=== PATIENT | male | born 1965 | race Caucasian/White ===

== ENCOUNTER 2019-01-09 08:41 | Inpatient (IN) ==
[2019-01-09] MEDS ORDERED: Albuterol 2.5 MG/3 ML NEBULIZER IH ONE (08:56)
--- NOTE | 2019-01-09 08:56 | Emergency Department Note ---
Disposition Clinical Impression: Acute exacerbation of chronic obstructive airways disease Disposition: Admitted As Inpatient Condition: Fair Time of Disposition: 10:07 General Adult HPI - General Stated complaint: JENNIFER Time Seen by Provider: 01/09/19 08:45 Source: patient Limitations: no limitations Nursing Notes Reviewed: Yes Vital Signs Reviewed: Yes - History of Present Illness HPI Narrative: Patient is a 53-year-old male presented with difficulty breathing and chills. Patient with known history of COPD. Patient states that for the past 3 days he has been having increased shortness of breath with exertion, cough with producti ve sputum as well as subjective fevers and chills. He states that last year he had pneumonia with very similar symptoms and was concerned. He has not had any recent antibiotic or steroid use. He does use Symbicort as well as albuterol at home, did do a nebulized treatment prior to arrival without significant improvement. Patient otherwise denies chest pain. He denies lower leg swelling, history of DVT or PE. Pain Scale: 0 - Related Data Home Medications Medication Instructions Recorded Confirmed Lisinopril/Hydrochlorothiazide 1 tab PO DAILY 01/09/19 01/09/19 [Zestoretic 20-25 mg Tablet] Lovastatin [Mevacor] 20 mg PO HS 01/09/19 01/09/19 Metoprolol Tartrate [Lopressor] 50 mg PO BID 01/09/19 01/09/19 cloNIDine HCl [Clonidine HCl] 0.2 mg PO DAILY 01/09/19 01/09/19 Allergies Allergy/AdvReac Type Severity Reaction Status Date / Time No Known Allergies Allergy Verified 09/19/16 09:22 All systems ED: reviewed and negative except as stated. Review of Systems: As Per HPI Constitutional: Reports: fever, chills ENT ED: Reports: congestion Cardiovascular: Reports: dyspnea on exertion. Denies: chest pain, palpitations, syncope Respiratory: Reports: cough, dyspnea, wheezes, sputum production. Denies: hemoptysis Gastrointestinal: Denies: abdominal pain, nausea, vomiting Genitourinary: Denies: urgency, dysuria Musculoskeletal: Denies: back pain Integumentary: Denies: rash Neurological: Denies: headache, weakness, confusion Endocrine: Denies: fatigue Past Medical History - Past Medical History Medical history: Reports: COPD, hypertension Psychiatric history: Reports: no psych history - Social History Smoking Status: Current every day smoker Smokeless Tobacco Status: No Alcohol use: Reports: none Drug use: Reports: none Physical Exam - General Limitations: no limitations General appearance: alert - Head Head exam: atraumatic, normocephalic, normal inspection - Eye Eye exam: Present: normal appearance, PERRL, EOMI - ENT ENT exam: normal exam, normal oropharynx, mucous membranes moist - Neck Neck exam: Present: normal inspection, full ROM, trachea midline - Chest Chest inspection: Present: normal inspection, symmetric chest wall rise - Respiratory Respiratory exam: Present: prolonged expiratory phase (Prolonged expiratory phase with diffuse wheezing bilaterally, rhonchorous with few crackles at the bases. Patient currently on 2 L nasal cannula and conversationally dyspneic) - Cardiovascular Cardiovascular exam: Present: regular rate, normal rhythm, normal heart sounds - Abdominal Exam Abdominal exam: Present: soft, Non-Tender. Absent: tenderness, distention, guarding, rebound, rigidity - Extremities Exam Extremities exam: Present: normal inspection, full ROM. Absent: tenderness, pedal edema - Back Exam Back exam: Present: normal inspection, full ROM. Absent: tenderness - Neurological Exam Neurological exam: Present: alert, oriented X3 - Psychiatric Psychiatric exam: Present: normal affect, normal mood - Skin Skin exam: Present: warm, dry, intact, normal color Course Vital Signs Temperature 97.4 F L 01/09/19 08:44 Pulse Rate 91 01/09/19 08:44 Respiratory Rate 22 01/09/19 08:44 Blood Pressure 110/80 01/09/19 08:44 O2 Sat by Pulse Oximetry 89 01/09/19 08:44 Temperature 97.4 F L 01/09/19 08:44 Pulse Rate 92 01/09/19 11:33 Respiratory Rate 20 01/09/19 11:33 Blood Pressure 116/77 01/09/19 11:33 O2 Sat by Pulse Oximetry 91 01/09/19 11:33 Oxygen Delivery Oxygen Delivery Nasal Cannula Medical Decision Making - [facility] Narrative Medical decision making narrative: Patient is a 53-year-old male who is presenting with shortness of breath. On arrival, patient is afebrile, normotensive, conversationally dyspneic on 2-4 L of nasal cannula. Patient does not wear oxygen at home. Patient with known history of COPD, chronic smoker. Initial treatment of DuoNeb and Solu-Medrol, on repeat evaluation with patient continues to have wheezing although somewhat improved. We will give additional DuoNeb treatment and reevaluate. On further evaluation, patient continues have wheezing, patient oxygen requirement at this point in time is 2 L nasal cannula, when this is removed sitting at bedside, patient desats to 88%. Patient had bedside walk evaluation, immediately desat to 83% and symptomatic. Laboratory work shows a leukocytosis of 17, no recent steroid use. Troponin within normal limits, EKG shows no acute ischemic changes. Chest x-ray shows no sign of focal pneumonia. As patient does have leukocytosis with increased purulent sputum with subjective chills and fever at home, we will treat the patient for pneumonia as well with Rocephin and azithromycin. At this point in time, patient will be admitted for COPD exacerbation, pneumonia as well as increased oxygen requirement. Patient agrees with disposition of admission. Stable at time of disposition. - Medical Records Medical records reviewed: Yes I reviewed the patient's medical records. - Lab Data Lab results reviewed: Yes I reviewed the patient's lab results. Result diagrams: 01/09/19 08:49 01/09/19 08:49 Lab Results 01/09/19 01/09/19 01/09/19 Range/Units 08:49 08:49 08:49 WBC 16.6 H (4.3-11.1) K/mcL RBC 5.63 H (4.19-5.50) M/mcL Hgb 17.0 H (12.9-16.9) g/dL Hct 51.3 H (37.5-50.1) % MCV 91.1 (83.0-100.0) fL MCH 30.2 (28.0-33.3) pg MCHC 33.1 (31.6-35.5) g/dL RDW 13.4 (11.5-14.5) % Plt Count 237 (140-400) K/mcL MPV 10.4 (9.4-12.4) fL Immature Gran % 0.5 (0-4) % Seg Neutrophils % 79.7 % Lymphocytes % 11.9 % Monocytes % 6.2 % Eosinophils % 1.0 % Basophils % 0.7 % Neutrophils # 13.2 H (1.6-8.9) K/mcL Lymphocytes # 2.0 (0.6-4.6) K/mcL Monocytes # 1.0 (0.0-1.3) K/mcL Eosinophils # 0.2 (0.0-0.6) K/mcL Basophils # 0.1 (0.0-0.2) K/mcL Sodium 136 (136-145) mEq/L Potassium 4.0 (3.5-5.1) mEq/L Chloride 95 L (98-107) mEq/L Carbon Dioxide 32 H (23-29) mEq/L BUN 14 (6-20) mg/dL Creatinine 1.08 (0.70-1.30) mg/dL Est GFR ( Amer) > 60 (> 60) Est GFR (Non-Af Amer) > 60 (> 60) BUN/Creatinine Ratio 13 (6-26) Glucose 140 H (70-105) mg/dL Calculated Osmolality 285 (280-300) Lactic Acid (0.5-2.2) mmol/L Calcium 9.6 (8.6-10.3) mg/dL Troponin I < 0.03 (< 0.04) ng/mL Procalcitonin 0.09 (0.00-0.15) ng/mL 01/09/19 Range/Units 08:49 WBC (4.3-11.1) K/mcL RBC (4.19-5.50) M/mcL Hgb (12.9-16.9) g/dL Hct (37.5-50.1) % MCV (83.0-100.0) fL MCH (28.0-33.3) pg MCHC (31.6-35.5) g/dL RDW (11.5-14.5) % Plt Count (140-400) K/mcL MPV (9.4-12.4) fL Immature Gran % (0-4) % Seg Neutrophils % % Lymphocytes % % Monocytes % % Eosinophils % % Basophils % % Neutrophils # (1.6-8.9) K/mcL Lymphocytes # (0.6-4.6) K/mcL Monocytes # (0.0-1.3) K/mcL Eosinophils # (0.0-0.6) K/mcL Basophils # (0.0-0.2) K/mcL Sodium (136-145) mEq/L Potassium (3.5-5.1) mEq/L Chloride (98-107) mEq/L Carbon Dioxide (23-29) mEq/L BUN (6-20) mg/dL Creatinine (0.70-1.30) mg/dL Est GFR ( Amer) (> 60) Est GFR (Non-Af Amer) (> 60) BUN/Creatinine Ratio (6-26) Glucose (70-105) mg/dL Calculated Osmolality (280-300) Lactic Acid 1.4 (0.5-2.2) mmol/L Calcium (8.6-10.3) mg/dL Troponin I (< 0.04) ng/mL Procalcitonin (0.00-0.15) ng/mL - Radiology Data Radiology results reviewed: Yes I reviewed the patient's radiology results. Chest X-Ray 01/09/19 08:55 IMPRESSION: No acute cardiopulmonary process. D/ / Guy Ceballos MD / Guy Ceballos MD Interpreting Provider: Guy Ceballos MD - EKG Data EKG #1 EKG attestation: Yes I reviewed and interpreted this EKG. EKG results narrative: EKG data 0847 ventricular rate of 83, regular rhythm, normal axis, no ST segment elevation, depression no T-wave changes. There does appear to be left atrial enlargement. Attestation Statement - Attestation Attestation: I, Norm Nielsen, examined this patient and my medical decision-making was reviewed with the MACHINE TRY OUT SETTER/PA/Advanced Practice Nurse/Resident Physician. I agree with the documented findings, disposition and treatment plan as described except to the extent set forth below. 53-year-old male presents emergency Department with concerns of difficulty in breathing. Patient reports difficulty breathing forth obligate exertion. He has a history of COPD. He also has a history of multiple pneumonia in the past. Patient reports that this feels similar to his previous pneumonia. Patient reports cough productive of yellow-green sputum. He is afebrile emergency department. He was given breathing treatments emergency Department with improvement of his wheezing which was present in bilateral posterior lung lopez however he was hypoxic with ambulation. Patient will be admitted to hospitalist for further care and evaluation. He was started on antibiotics emergency department. He was given steroids emergency department. Patient comfortable with the plan of action.
[2019-01-09] MEDS ORDERED: methylPREDNISolone 125 MG/2 ML VIAL IVP ONE (09:00)
[2019-01-09 09:28] LABS: Basophils # 0.1 K/mcL (0.0-0.2); Basophils % 0.7 %; Eosinophils # 0.2 K/mcL (0.0-0.6); Hematocrit 51.3 % (37.5-50.1); Immature Granulocytes % 0.5 % (0-4); Lymphocytes % 11.9 %; Mean Corpuscular HGB Conc 33.1 g/dL (31.6-35.5); Mean Corpuscular Hemoglobin 30.2 pg (28.0-33.3); Mean Corpuscular Volume 91.1 fL (83.0-100.0); Mean Platelet Volume 10.4 fL (9.4-12.4); Monocytes % 6.2 %; Neutrophils # 13.2 K/mcL (1.6-8.9); Platelet Count 237 K/mcL (140-400); Red Blood Count 5.63 M/mcL (4.19-5.50); Red Cell Distribution Width 13.4 % (11.5-14.5); Segmented Neutrophils % 79.7 %; White Blood Count 16.6 K/mcL (4.3-11.1)
[2019-01-09 09:46] LABS: BUN/Creatinine Ratio 13 (6-26); Blood Urea Nitrogen 14 mg/dL (6-20); Calcium 9.6 mg/dL (8.6-10.3); Carbon Dioxide 32 mEq/L (23-29); Chloride 95 mEq/L (98-107); Glucose 140 mg/dL (70-105); Osmolality,Calculated 285 (280-300); Sodium 136 mEq/L (136-145); Troponin I < 0.03 ng/mL (< 0.04); eGFR For African Americans > 60 (> 60); eGFR For Non-African Americans > 60 (> 60)
[2019-01-09] MEDS ORDERED: Ipratropium/Albuterol Neb 3 ML IH ONE (09:57)
[2019-01-09] MEDS ORDERED: cefTRIAXone 1,000 MG in Water for inj. (sterile) 10 ML IVP ONE (11:03)
[2019-01-09] MEDS ORDERED: Azithromycin 500 MG in 0.9 % Sodium Chloride 250 ML IVPB ONE (11:04)
--- NOTE | 2019-01-09 13:15 | Internal Med History&Physical ---
Date of Encounter: 01/09/19 Time of Encounter: 13:15 Internal Medicine - H&P: HPI Chief complaint: SOB, sputum production Admitted From: Emergency Dept History of present illness: Sridhar Murphy is a 53 M w hx COPD, smoker, HTN, obesity, who p/w SOB. Patient notes that for last week, he's had increasing exertional dyspnea with any activities, including most recently with even walking to kitchen or bathroom, and starting to feel some SOB at rest. Noting significant increase in sputum production, with color change from clear to green. Does say he's had pneumonia before and this feels like his previous episodes. Denies fevers, chills, aches, or lymphadenopathy. No chest pain or edema. Pt tried cough syrup without relief, and continued to feel worse. Is still smoking 0.5 ppd. In the ED, pt afebrile but HR 90s and RR 22, O2 sats 88% on RA and 83% with standing; recovered well w supplemental O2. CXR unremarkable including no consolidations/infiltrates. ECG unremarkable. Labs notable for WBC 17, Hb 17, CO2 32, glucose 140, lactate 1, trop <0.03, procalcitonin 0.1. Patient was given rocephin/azithro, solumedrol 125, multiple nebs, and admitted for persistent hypoxia. PMH: as noted above PSH: R knee replacement SH: 0.5 ppd smoker, no EtOH FH: no FHx of COPD or lung cancer, mother had DM2 Allergies: none Past Med Surg Social Fam HX - Past Medical History Medical history: COPD, hypertension Psychiatric history: no psych history - Social History Smoking Status: Current every day smoker Smokeless Tobacco Status: No Alcohol use: none Drug use: none Internal Medicine - H&P: Meds Unable To Obtain [Unable to Obtain] 01/09/19 [History] Allergy/AdvReac Type Severity Reaction Status Date / Time No Known Allergies Allergy Verified 09/19/16 09:22 All Systems PM: A 10-system review of systems was performed and is negative for pertinent findings except as documented above in the HPI. - Constitutional Vitals: Temp Pulse Resp BP Pulse Ox 97.4 F L 88 20 126/83 93 01/09/19 08:44 01/09/19 12:30 01/09/19 12:30 01/09/19 12:30 01/09/19 12:30 Exam: General: NAD, good eye contact, well appearing, obese Head: Atraumatic, normocephalic. Face symmetric Eyes: EOMI, sclerae anicteric ENT: Mucous membranes moist. Normal oral mucosa and dentition. Trachea midline. No cervical lymphadenopathy Thoracic: No visible chest wall deformities. Does have mild coarse expiratory breath sounds, with significant wheezing on forced exhalation Cardio: Normal S1 and S2, regular rate and rhythm, no murmurs Abdomen: Soft, nontender, nondistended. Bowel sounds present. No rebound Extremities: Warm, well perfused. DP pulses 2+ b/l. No clubbing, cyanosis. No edema Skin: Intact. No rashes, bruises, or ulcers Neuro: Awake, fully oriented. Good memory, concentration, attention. Speech fluent. CN II-XII grossly intact. Strength 5/5 in b/l UE and LE Internal Med - H&P Results - Labs CBC & Chem 7: 01/09/19 08:49 01/09/19 08:49 Labs: Short CBC 01/09/19 Range/Units 08:49 WBC 16.6 H (4.3-11.1) K/mcL Hgb 17.0 H (12.9-16.9) g/dL Hct 51.3 H (37.5-50.1) % Plt Count 237 (140-400) K/mcL Neutrophils # 13.2 H (1.6-8.9) K/mcL BMP 01/09/19 08:49 Sodium 136 Potassium 4.0 Chloride 95 L Carbon Dioxide 32 H BUN 14 Creatinine 1.08 Glucose 140 H Calcium 9.6 Cardiac Enzymes 01/09/19 Range/Units 08:49 Troponin I < 0.03 (< 0.04) ng/mL - Impressions ITS Impressions Chest X-Ray 01/09/19 08:55 IMPRESSION: No acute cardiopulmonary process. D/ / Guy Ceballos MD / Guy Ceballos MD Interpreting Provider: Guy Ceballos MD - Summary of Assessment and Plan Summary of Assessment and Plan: Sridhar Murphy is a 53 M w hx COPD, smoker, HTN, obesity, who p/w SOB, cough, increased sputum, sputum color change, tachypnea, and hypoxia, with normal procalcitonin, concerning for COPD exacerbation causing acute hypoxic respirato ry failure. COPD in acute exacerbation: unclear cause, is still smoking, hx pna but CXR and procal both unremarkable - nebs q4h&prn - prednisone 40 daily x5d, s/p solumedrol 125 in ED - azithromycin 500 po daily x5d - home inhalers Acute hypoxic respiratory failure: requiring 2L O2 to maintain sats >88% - supplemental O2, wean as able - IS, mucinex - treat cause as above - walk test prior to discharge HTN: awaiting home med rec, controlled currently Smoker: advised cessation, nicotine offered Obesity: BMI 35 PPx: lovenox Activity: ambulate FEN: cardiac, no MIVF Lines: PIV Consults: Code: Full Dispo: patient requires inpatient eval and management at this time. Anticipate 2-3 days. Will be homegoing. Might need new home O2.
[2019-01-09] MEDS ORDERED: Ondansetron 4 MG/2 ML VIAL IVP PRN (13:28)
[2019-01-09] MEDS ORDERED: Nicotine 2 MG GUM BC PRN (13:30)
[2019-01-09 13:47] LABS: Magnesium 2.1 mg/dL (1.6-2.6)
[2019-01-09] MEDS: Nicotine 21 MG PATCH.TD24 TD SCH (14:12)
[2019-01-09] MEDS: Ipratropium/Albuterol Neb 3 ML IH SCH ×3 (15:30→23:59)
[2019-01-10] MEDS: Ipratropium/Albuterol Neb 3 ML IH SCH ×5 (03:55→20:01)
[2019-01-10] MEDS: *HR* Enoxaparin 40 MG/0.4 ML SYRINGE SQ SCH (04:09)
[2019-01-10] MEDS: Acetaminophen 325 MG TABLET PO PRN ×2 (04:09→22:15)
[2019-01-10 04:54] LABS: Hematocrit 51.2 % (37.5-50.1); Hemoglobin 16.5 g/dL (12.9-16.9); Mean Corpuscular HGB Conc 32.2 g/dL (31.6-35.5); Mean Corpuscular Hemoglobin 29.8 pg (28.0-33.3); Mean Corpuscular Volume 92.4 fL (83.0-100.0); Mean Platelet Volume 10.4 fL (9.4-12.4); Platelet Count 228 K/mcL (140-400); Red Blood Count 5.54 M/mcL (4.19-5.50); Red Cell Distribution Width 13.2 % (11.5-14.5); White Blood Count 16.4 K/mcL (4.3-11.1)
[2019-01-10 05:11] LABS: BUN/Creatinine Ratio 23 (6-26); Blood Urea Nitrogen 21 mg/dL (6-20); Calcium 9.4 mg/dL (8.6-10.3); Carbon Dioxide 31 mEq/L (23-29); Chloride 96 mEq/L (98-107); Glucose 156 mg/dL (70-105); Magnesium 2.3 mg/dL (1.6-2.6); Osmolality,Calculated 284 (280-300); Potassium 4.4 mEq/L (3.5-5.1); Sodium 134 mEq/L (136-145); eGFR For African Americans > 60 (> 60); eGFR For Non-African Americans > 60 (> 60)
[2019-01-10] MEDS: Nicotine 21 MG PATCH.TD24 TD SCH (09:38)
[2019-01-10] MEDS: predniSONE 20 MG TABLET PO SCH (09:38)
[2019-01-10] MEDS: Azithromycin 250 MG TABLET PO SCH (09:38)
--- NOTE | 2019-01-10 12:31 | Internal Med Progress Note ---
Hospitalist Progress Note - Encounter Date of Encounter: 01/10/19 Time of Encounter: 12:29 - Subjective Interval History: Patient was seen and examined at the bedside today. Patient reports has difficulty breathing has proved since yesterday. Patient continues to have difficulty in breathing on exertion. Denies any chest pain, palpitation, tingling, numbness, and weakness. - Exam Vitals: Temp Pulse Resp BP Pulse Ox 97.8 F 101 14 123/84 93 01/10/19 07:53 01/10/19 07:53 01/10/19 11:16 01/10/19 07:53 01/10/19 11:16 Exam: General: NAD, good eye contact, well appearing, obese Head: Atraumatic, normocephalic. Face symmetric Eyes: EOMI, sclerae anicteric RS: Bilateral wheezing Cardio: Normal S1 and S2, regular rate and rhythm, no murmurs Abdomen: Soft, nontender, nondistended. Bowel sounds present. No rebound Extremities: Warm, well perfused. DP pulses 2+ b/l. No clubbing, cyanosis. No edema Skin: Intact. No rashes, bruises, or ulcers - Assessment and Plan (1) Acute exacerbation of chronic obstructive airways disease Current Visit: Yes Status: Acute Assessment and Plan: She was hospitalized due to difficulty in breathing which was secondary to acute exacerbation of COPD. Patient continues to smoke. Patient was advised on quitting smoking. - Continue DuoNeb breathing therapy - Continue azithromycin - Continue steroid -Continue O2 support (2) Essential (primary) hypertension Current Visit: Yes Status: Acute Assessment and Plan: We will resume home medication as blood pressure permits. Lisinopril and hydrochlorothiazide resume today. (3) GIULIANA (obstructive sleep apnea) Current Visit: Yes Status: Chronic Assessment and Plan: Patient has history of GIULIANA. We will continue CPAP at nighttime. DVT Prophylaxis: Continue Lovenox. - Time Spent with Patient Total time spent is greater than 50% in coordination of care (as documented) at patient's floor/unit and/or counseling patient: 25 - 35 minutes Plan of Care Discussed with: patient Internal Medicine: Result - Labs CBC & Chem 7: 01/10/19 04:05 01/10/19 04:05 Labs: Short CBC 01/10/19 Range/Units 04:05 WBC 16.4 H (4.3-11.1) K/mcL Hgb 16.5 (12.9-16.9) g/dL Hct 51.2 H (37.5-50.1) % Plt Count 228 (140-400) K/mcL BMP 01/09/19 01/10/19 08:49 04:05 Sodium 136 134 L Potassium 4.0 4.4 Chloride 95 L 96 L Carbon Dioxide 32 H 31 H BUN 14 21 H Creatinine 1.08 0.92 Glucose 140 H 156 H Calcium 9.6 9.4 Cardiac Enzymes 01/09/19 Range/Units 08:49 Troponin I < 0.03 (< 0.04) ng/mL Consult Discharge Plan - Plan
[2019-01-11] MEDS: Ipratropium/Albuterol Neb 3 ML IH SCH ×7 (00:18→23:25)
[2019-01-11] MEDS: *HR* Enoxaparin 40 MG/0.4 ML SYRINGE SQ SCH (05:09)
[2019-01-11 07:10] LABS: Basophils # 0.1 K/mcL (0.0-0.2); Basophils % 0.6 %; Eosinophils # 0.1 K/mcL (0.0-0.6); Eosinophils % 0.7 %; Hematocrit 49.5 % (37.5-50.1); Hemoglobin 15.6 g/dL (12.9-16.9); Immature Granulocytes % 0.6 % (0-4); Lymphocytes # 2.7 K/mcL (0.6-4.6); Lymphocytes % 22.4 %; Mean Corpuscular HGB Conc 31.5 g/dL (31.6-35.5); Mean Corpuscular Hemoglobin 30.2 pg (28.0-33.3); Mean Corpuscular Volume 95.7 fL (83.0-100.0); Mean Platelet Volume 10.5 fL (9.4-12.4); Monocytes # 0.8 K/mcL (0.0-1.3); Monocytes % 6.3 %; Neutrophils # 8.5 K/mcL (1.6-8.9); Platelet Count 225 K/mcL (140-400); Red Blood Count 5.17 M/mcL (4.19-5.50); Red Cell Distribution Width 13.3 % (11.5-14.5); Segmented Neutrophils % 69.4 %; White Blood Count 12.2 K/mcL (4.3-11.1)
[2019-01-11] MEDS: Budesonide/Formoterol 160/4.5 1 PUFF INH IH SCH ×2 (07:24→19:53)
[2019-01-11 07:30] LABS: BUN/Creatinine Ratio 25 (6-26); Blood Urea Nitrogen 20 mg/dL (6-20); Carbon Dioxide 33 mEq/L (23-29); Chloride 97 mEq/L (98-107); Glucose 120 mg/dL (70-105); Osmolality,Calculated 290 (280-300); Potassium 4.1 mEq/L (3.5-5.1); Sodium 138 mEq/L (136-145); eGFR For African Americans > 60 (> 60); eGFR For Non-African Americans > 60 (> 60)
[2019-01-11 07:58] LABS: Estimated Average Glucose 146 mg/dl
[2019-01-11] MEDS: Nicotine 21 MG PATCH.TD24 TD SCH (09:30)
[2019-01-11] MEDS: predniSONE 20 MG TABLET PO SCH (09:30)
[2019-01-11] MEDS: Azithromycin 250 MG TABLET PO SCH (09:30)
--- NOTE | 2019-01-11 13:04 | Internal Med Progress Note ---
Hospitalist Progress Note - Encounter Date of Encounter: 01/11/19 Time of Encounter: 13:01 - Subjective Interval History: Patient was seen and examined at bedside today. Patient reports that his blood including his improvement. However, patient still complaining of difficulty in breathing on exertion. Pt denied any chest pain and palpitation. - Exam Vitals: Temp Pulse Resp BP Pulse Ox 98.7 F 102 16 118/80 95 01/11/19 10:56 01/11/19 10:56 01/11/19 11:15 01/11/19 10:56 01/11/19 12:01 Exam: General: NAD, good eye contact, well appearing, obese Head: Atraumatic, normocephalic. Face symmetric Eyes: EOMI, sclerae anicteric RS: Mild to Moderate bilateral wheezing Cardio: Normal S1 and S2, regular rate and rhythm, no murmurs Abdomen: Soft, nontender, nondistended. Bowel sounds present. No rebound Extremities: Warm, well perfused. DP pulses 2+ b/l. No clubbing, cyanosis. No edema Skin: Intact. No rashes, bruises, or ulcers - Assessment and Plan (1) Acute exacerbation of chronic obstructive airways disease Current Visit: Yes Status: Acute Assessment and Plan: Pt was hospitalized due to difficulty in breathing which was secondary to acute exacerbation of COPD. Patient continues to smoke. Patient was advised on quitting smoking. - Continue DuoNeb breathing therapy - Continue azithromycin - Continue steroid - Continue O2 support - Patient is ambulatory pulse ox in today. Patient jacqui qualify for home O2 with 2L at rest and 4L on exertion. (2) Essential (primary) hypertension Current Visit: Yes Status: Acute Assessment and Plan: Lisinopril and hydrochlorothiazide resume today. (3) GIULIANA (obstructive sleep apnea) Current Visit: Yes Status: Chronic Assessment and Plan: Patient has history of GIULIANA. We will continue CPAP at nighttime. DVT Prophylaxis: Continue Lovenox. - Time Spent with Patient Total time spent is greater than 50% in coordination of care (as documented) at patient's floor/unit and/or counseling patient: 25 - 35 minutes Plan of Care Discussed with: patient Internal Medicine: Result - Labs CBC & Chem 7: 01/11/19 05:38 01/11/19 05:38 Labs: Short CBC 01/11/19 Range/Units 05:38 WBC 12.2 H (4.3-11.1) K/mcL Hgb 15.6 (12.9-16.9) g/dL Hct 49.5 (37.5-50.1) % Plt Count 225 (140-400) K/mcL Neutrophils # 8.5 (1.6-8.9) K/mcL [facility] 01/11/19 05:38 Sodium 138 Potassium 4.1 Chloride 97 L Carbon Dioxide 33 H BUN 20 Creatinine 0.80 Glucose 120 H Calcium 9.0 Consult Discharge Plan - Plan Referrals: Stacy Vaughn, OUT OF TOWN COLLECTION CLERK [Primary Care Provider] -
[2019-01-12] MEDS: Ipratropium/Albuterol Neb 3 ML IH SCH ×2 (03:37→07:25)
[2019-01-12] MEDS: *HR* Enoxaparin 40 MG/0.4 ML SYRINGE SQ SCH (05:00)
[2019-01-12 06:28] LABS: Basophils # 0.1 K/mcL (0.0-0.2); Basophils % 0.6 %; Eosinophils # 0.1 K/mcL (0.0-0.6); Eosinophils % 1.1 %; Hematocrit 50.3 % (37.5-50.1); Immature Granulocytes % 0.8 % (0-4); Lymphocytes # 2.5 K/mcL (0.6-4.6); Lymphocytes % 20.8 %; Mean Corpuscular HGB Conc 31.8 g/dL (31.6-35.5); Mean Corpuscular Hemoglobin 29.9 pg (28.0-33.3); Mean Platelet Volume 9.9 fL (9.4-12.4); Monocytes % 7.8 %; Neutrophils # 8.4 K/mcL (1.6-8.9); Platelet Count 250 K/mcL (140-400); Red Blood Count 5.35 M/mcL (4.19-5.50); Red Cell Distribution Width 13.3 % (11.5-14.5); Segmented Neutrophils % 68.9 %; White Blood Count 12.2 K/mcL (4.3-11.1)
[2019-01-12 06:47] LABS: BUN/Creatinine Ratio 20 (6-26); Blood Urea Nitrogen 16 mg/dL (6-20); Calcium 9.4 mg/dL (8.6-10.3); Carbon Dioxide 32 mEq/L (23-29); Chloride 96 mEq/L (98-107); Glucose 132 mg/dL (70-105); Osmolality,Calculated 285 (280-300); Sodium 136 mEq/L (136-145); eGFR For African Americans > 60 (> 60); eGFR For Non-African Americans > 60 (> 60)
[2019-01-12] MEDS: Budesonide/Formoterol 160/4.5 1 PUFF INH IH SCH (07:25)
[2019-01-12 07:59] VITALS: BP 130/86
[2019-01-12] MEDS: predniSONE 20 MG TABLET PO SCH (08:11)
[2019-01-12] MEDS: Nicotine 21 MG PATCH.TD24 TD SCH (08:11)
[2019-01-12] MEDS: Azithromycin 250 MG TABLET PO SCH (08:12)
--- NOTE | 2019-01-12 09:06 | Discharge Summary ---
- NOTES TO OUTPATIENT PROVIDER Notes to Outpatient Provider: Patient was admitted to the hospital for difficulty in breathing. Patient was placed on antibiotic and steroid. Patient improved. Patient discharged home on antibiotic and steroid taper. Patient had ambulatory pulse ox done while hospitalization. Patient qualified for oxygen at home. Patient advised to use oxygen 2 L at rest and 4 L on exertion. Advised to use oxygen at least 14-16 hours in a day. She also had HbA1c done which showed labile of 6.7. Patient was discharged on metformin for 2 weeks. Follow- up with primary care provider. Estimated PT Needs at Discharge: None Date of Encounter: 01/12/19 Time of Encounter: 09:01 - Discharge Diagnosis (1) Acute exacerbation of chronic obstructive airways disease Priority: Primary Status: Acute (2) Essential (primary) hypertension Priority: Secondary Status: Acute (3) Diabetes mellitus type 2 in obese Priority: Secondary Status: Acute (4) GIULIANA (obstructive sleep apnea) Priority: Secondary Status: Chronic Hospital course: Mr. Murphy is a 53 year old male was admitted to the hospital for difficulty in breathing. Patient was placed on antibiotic and steroid. Patient improved. Patient discharged home on antibiotic and steroid taper. Patient had ambulatory pulse ox done while hospitalization. Patient qualified for oxygen at home. Patient advised to use oxygen 2 L at rest and 4 L on exertion. Advised to use oxygen at least 14-16 hours in a day. She also had HbA1c done which showed labile of 6.7. Patient was discharged on metformin for 2 weeks. Follow-up with primary care provider. Discharge discussed with: patient, family, nurse, social work, case management - Time Spent with Patient Total time spent providing and/or coordinating discharge services: 35 Time spent: Greater than 30 minutes - Discharge Medications Prescriptions: New metFORMIN [Glucophage] 500 mg PO BIDWM 15 Days #30 tablet predniSONE [PredniSONE] 10 mg PO DAILY 14 Days #32 tablet Azithromycin [Zithromax] 500 mg PO DAILY 3 Days #3 tablet Continued Lovastatin [Mevacor] 20 mg PO HS Lisinopril/Hydrochlorothiazide [Zestoretic 20-25 mg Tablet] 1 tab PO DAILY Metoprolol Tartrate [Lopressor] 50 mg PO BID cloNIDine HCl [Clonidine HCl] 0.2 mg PO DAILY Home Medications: Lisinopril/Hydrochlorothiazide [Zestoretic 20-25 mg Tablet] 1 tab PO DAILY 01/09/19 [History] Lovastatin [Mevacor] 20 mg PO HS 01/09/19 [History] Metoprolol Tartrate [Lopressor] 50 mg PO BID 01/09/19 [History] cloNIDine HCl [Clonidine HCl] 0.2 mg PO DAILY 01/09/19 [History] Azithromycin [Zithromax] 500 mg PO DAILY 3 Days #3 tablet 01/12/19 [Rx] metFORMIN [Glucophage] 500 mg PO BIDWM 15 Days #30 tablet 01/12/19 [Rx] predniSONE [PredniSONE] 10 mg PO DAILY 14 Days #32 tablet 01/12/19 [Rx] Allergies/Adverse Reactions: Allergy/AdvReac Type Severity Reaction Status Date / Time No Known Allergies Allergy Verified 09/19/16 09:22 Date of admission: 01/09/19 13:28 Primary care physician: Stacy Vaughn Consults: 01/10/19 16:08 Consult to Nurse Navigator [CONS] Routine Comment: COPD Discharging clinician: Amor Lynch - Constitutional Vitals: Temp Pulse Resp BP Pulse Ox 98.3 F 102 18 130/86 90 01/12/19 07:58 01/12/19 07:58 01/12/19 07:58 01/12/19 07:58 01/12/19 07:58 General appearance: Present: cooperative, A&O X 3 Exam: General: A & O 3, In no acute distress HENNT: PERRLA. Head atraumatic and makes supple CVS S1 and S2 regular, no murmur RS: Clear to air entry bilaterally, no wheeze, no crackles Abdomen: Soft and nontender. Bowel sounds normal 4 Extremities: No cyanosis, clubbing, and edema Neurology: Cranial II-XII normal. Motor strength 5/5 bilaterally. Sensation intact - Patient Status Disposition: Home, Self-Care Condition: Good Overall status at discharge: patient is progressing back to baseline - Discharge Instructions Follow Up With: Stacy Vaughn, MONICA [Primary Care Provider] - (Please Call and set up follow up appointment within 7-10 days. ) Forms: ED Satisfaction Letter Additional Instructions: She was discharged on home oxygen. Patient was advised to use 2 L at rest and 4 L on exertion. - Diet and Activity Activity: increase activity as tolerated Diet: diabetic diet, low salt diet
--- NOTE | 2019-01-12 23:57 | Electrocardiograph Report ---
[facility] Test Date: 2019-01-09 Pat Name: Sridhar Murphy Department: EXAM3 Room: 2A38 Gender: M Stone Operator: : 1965 Requested By: Norm Nielsen Order Number: [id number] Reading MD: Sunday Adame Measurements Intervals [place] Rate: 83 P: 63 [place]: 173 QRS: 103 QRSD: 133 T: 77 QT: 412 QTc: 485 Interpretive Statements Sinus rhythm Probable left atrial enlargement Nonspecific intraventricular conduction delay Baseline wander in lead(s) V1 Electronically Signed On 01-12-2019 23:55:50 EDT by Sunday Adame
== END 2019-01-12 10:01 | disposition home or self-care (01) | DRG 190 ==
LOC: EMEROOARM 08:41 → 2ANU 08:41 → SUATTDRO 13:28 → 2ANU 13:49
PROVIDERS: ADMIT Internal Medicine; ATTEND Family Medicine

== ENCOUNTER 2021-02-13 18:31 | Inpatient (IN) ==
[2021-02-13] MEDS ORDERED: Ondansetron 4 MG/2 ML VIAL IVP PRN (21:10)
[2021-02-13] MEDS ORDERED: Acetaminophen 325 MG TABLET PO PRN (21:10)
[2021-02-13] MEDS ORDERED: Naloxone 0.4 MG/ML INJ IVP PRN (21:10)
[2021-02-13] MEDS ORDERED: D5% in Water 1,000 ML IVC PRN (21:12)
[2021-02-13] MEDS ORDERED: Dextrose Gel 15 GM/37.5 ML TUBE PO PRN ×2 (21:12)
[2021-02-13] MEDS ORDERED: *HR* Dextrose 50 % in Water (Syg) 50 ML SYRINGE IVP PRN (21:12)
[2021-02-13] MEDS: Insulin LISPRO 300 UNITS/3 ML VIAL SUBQ SCH (21:27)
[2021-02-13 21:32] LABS: Estimated Average Glucose 163 mg/dl; Hemoglobin A1C 7.3 %
[2021-02-13] MEDS: Tiotropium 10 INH DOSE IH SCH (23:02)
[2021-02-13] MEDS ORDERED: Ringers Solution, Lactated 500 ML IVC ONE (23:15)
[2021-02-14 05:39] LABS: Basophils % 0.3 %; Hematocrit 40.7 % (37.5-50.1); Hemoglobin 13.7 g/dL (12.9-16.9); Immature Granulocytes % 0.8 % (0-4); Lymphocytes # 0.6 K/mcL (0.6-4.6); Lymphocytes % 6.6 %; Mean Corpuscular HGB Conc 33.7 g/dL (31.6-35.5); Mean Corpuscular Hemoglobin 31.4 pg (28.0-33.3); Mean Corpuscular Volume 93.1 fL (83.0-100.0); Mean Platelet Volume 10.5 fL (9.4-12.4); Monocytes # 0.1 K/mcL (0.0-1.3); Monocytes % 1.3 %; Neutrophils # 8.8 K/mcL (1.6-8.9); Platelet Count 268 K/mcL (140-400); Red Blood Count 4.37 M/mcL (4.19-5.50); Red Cell Distribution Width 15.1 % (11.5-14.5); White Blood Count 9.7 K/mcL (4.3-11.1)
[2021-02-14] MEDS ORDERED: *HR* Enoxaparin 30 MG/0.3 ML SYRINGE SQ SCH (06:00)
[2021-02-14 06:03] LABS: Albumin/Globulin Ratio 0.9 (1.1-2.2); Bilirubin,Total 0.6 mg/dL (0.3-1.0); Calcium 8.6 mg/dL (8.6-10.3); Globulin 3.4 g/dL (2.4-3.5); Potassium 4.5 mEq/L (3.5-5.1); Total Protein 6.4 g/dL (6.4-8.9)
[2021-02-14] MEDS ORDERED: 0.9 % Sodium Chloride 1,000 ML IVC SCH (07:15)
[2021-02-14] MEDS: Insulin LISPRO 300 UNITS/3 ML VIAL SUBQ SCH ×3 (09:49→17:07)
[2021-02-14] MEDS: Tiotropium 10 INH DOSE IH SCH (11:12)
[2021-02-14] MEDS: cefTRIAXone 1,000 MG in Water for inj. (sterile) 10 ML IVP SCH (17:06)
[2021-02-14] MEDS: Azithromycin 500 MG in 0.9 % Sodium Chloride 250 ML IVPB SCH (17:07)
[2021-02-14] MEDS: Insulin DETEMIR 100 UNIT/ML X5UNITS SUBQ SCH (21:19)
[2021-02-15] MEDS: *HR* Enoxaparin 40 MG/0.4 ML SYRINGE SQ SCH (04:24)
[2021-02-15 05:56] LABS: Prothrombin Time 11.2 Seconds (9.4-12.1)
[2021-02-15 06:23] LABS: Alanine Aminotransferase 12 Units/L (7-52); Albumin 3.2 g/dL (3.5-5.7); Albumin/Globulin Ratio 0.9 (1.1-2.2); Alkaline Phosphatase 92 Units/L (34-104); Aspartate Amino Transferase 15 Units/L (13-39); BUN/Creatinine Ratio 32 (6-26); Bilirubin,Direct 0.2 mg/dL (0.0-0.2); Bilirubin,Indirect 0.2 mg/dL (0.0-1.0); Bilirubin,Total 0.4 mg/dL (0.3-1.0); Blood Urea Nitrogen 38 mg/dL (6-20); Carbon Dioxide 30 mEq/L (23-29); Chloride 99 mEq/L (98-107); Globulin 3.4 g/dL (2.4-3.5); Glucose 145 mg/dL (70-105); Lactate Dehydrogenase 203 Units/L (140-271); Magnesium 2.2 mg/dL (1.6-2.6); Osmolality,Calculated 296 (280-300); Phosphorous 2.4 mg/dL (2.7-4.5); Potassium 4.1 mEq/L (3.5-5.1); Sodium 137 mEq/L (136-145); Total Protein 6.6 g/dL (6.4-8.9); eGFR For African Americans > 60 (> 60); eGFR For Non-African Americans > 60 (> 60)
[2021-02-15 06:28] LABS: Ferritin 1051 ng/mL (20-250)
[2021-02-15 06:44] LABS: Hematocrit 44.6 % (37.5-50.1); Hemoglobin 14.1 g/dL (12.9-16.9); Mean Corpuscular HGB Conc 31.6 g/dL (31.6-35.5); Mean Corpuscular Hemoglobin 29.3 pg (28.0-33.3); Mean Corpuscular Volume 92.5 fL (83.0-100.0); Mean Platelet Volume 10.7 fL (9.4-12.4); Platelet Count 320 K/mcL (140-400); Red Blood Count 4.82 M/mcL (4.19-5.50); Red Cell Distribution Width 15.2 % (11.5-14.5); White Blood Count 12.7 K/mcL (4.3-11.1)
[2021-02-15] MEDS: Nicotine 14 MG PATCH.TD24 TD SCH (08:35)
[2021-02-15] MEDS: Insulin LISPRO 300 UNITS/3 ML VIAL SUBQ SCH ×3 (08:46→17:27)
[2021-02-15] MEDS: Tiotropium 10 INH DOSE IH SCH (09:46)
[2021-02-15] MEDS: Budesonide/Formoterol 80/4.5 1 PUFF INH IH SCH ×2 (09:46→20:33)
[2021-02-15] MEDS ORDERED: Remdesivir 200 MG in 0.9 % Sodium Chloride 100 ML IVPB ONE (14:00)
[2021-02-15] MEDS: cefTRIAXone 1,000 MG in Water for inj. (sterile) 10 ML IVP SCH (17:40)
[2021-02-15] MEDS: Azithromycin 500 MG in 0.9 % Sodium Chloride 250 ML IVPB SCH (17:41)
[2021-02-15] MEDS: Insulin DETEMIR 100 UNIT/ML X5UNITS SUBQ SCH (21:34)
[2021-02-16 02:20] VITALS: PULSE 81
[2021-02-16] MEDS: *HR* Enoxaparin 40 MG/0.4 ML SYRINGE SQ SCH (06:20)
[2021-02-16 06:59] LABS: Albumin 3.1 g/dL (3.5-5.7); Bilirubin,Direct 0.1 mg/dL (0.0-0.2); Bilirubin,Indirect 0.3 mg/dL (0.0-1.0); Bilirubin,Total 0.4 mg/dL (0.3-1.0); Globulin 3.2 g/dL (2.4-3.5); Total Protein 6.3 g/dL (6.4-8.9)
[2021-02-16 07:43] VITALS: BP 149/96; TEMP 98.1
[2021-02-16] MEDS: Insulin LISPRO 300 UNITS/3 ML VIAL SUBQ SCH ×2 (08:16→11:20)
[2021-02-16] MEDS: Nicotine 14 MG PATCH.TD24 TD SCH (09:24)
[2021-02-16 10:03] VITALS: O2SAT 91
[2021-02-16] MEDS ORDERED: Remdesivir 100 MG in 0.9 % Sodium Chloride 100 ML IVPB SCH (14:00)
== END 2021-02-16 13:31 | disposition home or self-care (01) | DRG 871 ==
LOC: 2NNU → OBSVTOIN 20:28 → SUATTDRO 20:28 → 3BNU 02-14 14:48
PROVIDERS: ADMIT Student in an Organized Health Care Education/Training Program; ATTEND Internal Medicine